=== PATIENT | female | born 1995 | race Caucasian/White ===

== ENCOUNTER 2021-07-04 03:43 | Emergency (ER) | payer MEDICAID ==
[~2021-07-04] VITALS: Ht 162.6 cm; Wt 57.0 kg
[2021-07-04] MEDS ORDERED: IBUPROFEN 800MG TABLET PO ONE ×2 (04:15→06:00)
[2021-07-04] MEDS ORDERED: HYDROCODONE/ACETAMINOPHEN 5/325MG TABLET PO ONE (04:30)
[2021-07-04] MEDS ORDERED: IBUP-2030 MT (05:30)
[2021-07-04 06:24] VITALS: BP 108/69
== END 2021-07-04 08:29 | disposition home or self-care (01) ==
LOC: ER 04:09
DX: S93.602A Unspecified sprain of left foot, initial encounter (principal); S93.402A Sprain of unspecified ligament of left ankle, initial encounter; V43.52XA Car driver injured in collision with other type car in traffic accident, initial encounter; Y93.89 Activity, other specified; Y92.410 Unspecified street and highway as the place of occurrence of the external cause
CPT/HCPCS: 73610; 73630; 99284